=== PATIENT | male | born 1990 | race Caucasian/White ===

== ENCOUNTER 2021-06-26 14:09 | Emergency (ER) | payer MEDICAID, OTHER ==
[~2021-06-26] VITALS: Ht 190.5 cm; Wt 113.6 kg
[2021-06-26 14:22] VITALS: BP 143/98
[2021-06-26] MEDS ORDERED: AZIT250T PO (15:05)
== END 2021-06-26 15:17 | disposition home or self-care (01) ==
LOC: ER 14:10
DX: J20.9 Acute bronchitis, unspecified (principal); R11.2 Nausea with vomiting, unspecified; R19.7 Diarrhea, unspecified; F12.90 Cannabis use, unspecified, uncomplicated; Z87.01 Personal history of pneumonia (recurrent); Z88.0 Allergy status to penicillin; Z79.2 Long term (current) use of antibiotics
CPT/HCPCS: 71045; 99283

== ENCOUNTER 2021-06-30 16:36 | Emergency (ER) | payer MEDICAID, OTHER ==
[~2021-06-30] VITALS: Ht 193 cm; Wt 113.6 kg
[~2021-06-30 16:36] MED LIST: AZIT250T PO
[2021-06-30 17:29] VITALS: BP 150/111
[2021-06-30] MEDS ORDERED: predniSONE 20 mg tablet PO ONE (17:30)
[2021-06-30] MEDS ORDERED: diphenhydrAMINE 25mg capsule PO ONE (17:30)
[2021-06-30] MEDS ORDERED: ibuprofen tablet 400 MG TABLET PO ONE (17:30)
== END 2021-06-30 17:50 | disposition home or self-care (01) ==
LOC: ER 16:38
DX: T63.441A Toxic effect of venom of bees, accidental (unintentional), initial encounter (principal); R51.9 Headache, unspecified; F12.90 Cannabis use, unspecified, uncomplicated; Z87.01 Personal history of pneumonia (recurrent); Z88.0 Allergy status to penicillin; Z79.2 Long term (current) use of antibiotics; Y92.89 Other specified places as the place of occurrence of the external cause
CPT/HCPCS: 99284; J7512; Q0163

== ENCOUNTER 2022-09-04 09:26 | Emergency (ER) | payer MEDICAID, OTHER ==
[~2022-09-04] VITALS: Ht 185.4 cm; Wt 90.0 kg
[2022-09-04 09:52] VITALS: BP 123/103
== END 2022-09-04 10:18 ==
LOC: ER 09:27
DX: R20.2 Paresthesia of skin (principal); Z88.5 Allergy status to narcotic agent
CPT/HCPCS: 99283

== ENCOUNTER 2023-02-07 12:06 | Outpatient (CLI) | payer MEDICAID | END 2023-02-07 23:59 | disposition home or self-care (01) | LOC: RAD 12:06 | PROVIDERS: ATTEND Family Medicine | DX: R90.82 White matter disease, unspecified (principal); H53.9 Unspecified visual disturbance | CPT/HCPCS: 70551 ==